=== PATIENT | female | born 1995 | race Two or more races ===

== ENCOUNTER 2021-07-20 18:08 | Emergency (ER) | payer MEDICAID, OTHER ==
[~2021-07-20] VITALS: Ht 170.2 cm; Wt 81.6 kg
[2021-07-20 18:09] VITALS: BP 116/66
[2021-07-20] MEDS ORDERED: PANT40TA2 PO (20:27)
[2021-07-20] MEDS ORDERED: PRED10TA PO (20:27)
[2021-07-20] MEDS ORDERED: AZITTAB PO (21:33)
== END 2021-07-20 21:39 | disposition home or self-care (01) ==
LOC: ER 18:08
DX: J02.9 Acute pharyngitis, unspecified (principal)
CPT/HCPCS: 71045